=== PATIENT | female | born 1965 | race Caucasian/White ===

== ENCOUNTER 2019-04-28 05:34 | Day surgery (SDC) | payer OTHER ==
[~2019-04-28 05:34] MED LIST: Buffered Lidocaine 1% SYRIN* 1 ML/SYRINGE INTRADERM ONE
[2019-04-28] MEDS ORDERED: Famotidine IV* 10 MG/ML 2 ML (20 mg) IV ONE (06:00)
[2019-04-28] MEDS ORDERED: Lactated Ringers 1000 ML Bag* 1,000 ML IV SCH (06:00)
[2019-04-28] MEDS ORDERED: Metoclopramide IV* 5 MG/ML 2 ML VIAL IV SLOW PU ONE (06:00)
[2019-04-28] MEDS ORDERED: Famotidine IV* 10 MG/ML 2 ML (20 mg) ONE (06:05)
[2019-04-28] MEDS ORDERED: Buffered Lidocaine 1% SYRIN* 1 ML/SYRINGE INTRADERM ONE (06:05)
[2019-04-28] MEDS ORDERED: Metoclopramide IV* 5 MG/ML 2 ML VIAL ONE (06:05)
[2019-04-28 06:48] LABS: Hematocrit 44 % (35-47); Hemoglobin 15.6 g/dL (12.0-16.0); Mean Corpuscular HGB Conc 35 g/dL (31-36); Mean Corpuscular Hemoglobin 29 pg (27-31); Mean Corpuscular Volume 83 fL (80-97); Mean Platelet Volume 7.7 fL (7.4-10.4); Platelet Count 226 10^3/uL (150-450); Red Blood Count 5.34 10^6 /uL (3.70-4.87); Red Cell Distribution Width 13 % (10-15); White Blood Count 6.9 10^3/uL (3.5-10.8)
[2019-04-28] MEDS ORDERED: Silver Nitrate/Potassium Nitr* 1 EA STICK ONE (06:52)
[2019-04-28] MEDS ORDERED: Dextrose 50% Syringe 50 ML* 25 GM/50 ML SYRINGE ONE (06:55)
[2019-04-28] MEDS ORDERED: fentaNYL* 50 MCG/ML 2 ML VIAL (100 MCG VIAL) ONE ×2 (07:09→08:31)
[2019-04-28] MEDS ORDERED: Ketorolac INJ* 30 MG/ML 1 ML VIAL ONE (07:10)
[2019-04-28] MEDS ORDERED: Propofol* 10 MG/ML 20 ML BTL ONE (07:10)
[2019-04-28] MEDS ORDERED: Ondansetron INJ* 2 MG/ML VIAL ONE (07:10)
[2019-04-28] MEDS ORDERED: Lidocaine 2% PF * 5 ML VIAL ONE (07:10)
[2019-04-28] MEDS ORDERED: DiMENhydriNATE IV* 50 MG/ML VIAL IV PUSH PRN (08:20)
[2019-04-28] MEDS ORDERED: Naloxone* 0.4 MG/ML 1 ML VIAL IV PRN (08:20)
[2019-04-28] MEDS ORDERED: Ibuprofen TAB* 600 MG PO PRN (08:37)
[2019-04-28] MEDS: fentaNYL* 50 MCG/ML 2 ML VIAL (100 MCG VIAL) IV PRN ×2 (08:37→08:44)
--- NOTE | 2019-04-28 09:00 | OP ---
AMENDED REPORT NOW INCLUDES DATE OF OPERATION DATE OF OPERATION: 04/28/19 - [facility] DATE OF : 65 SURGEON: Tiffany Soriano MD. ANESTHESIOLOGIST: Dr. Kramer. ANESTHESIA: General endotracheal anesthesia. PRE-OP DIAGNOSES: Postmenopausal bleeding, polyp on ultrasound. POST-OP DIAGNOSES: Postmenopausal bleeding, polyp on ultrasound. OPERATIVE PROCEDURE: 1. Dilation hysteroscopy. 2. MyoSure polypectomy. 3. Curettage. ESTIMATED BLOOD LOSS: Minimal, less than 50 cc. FINDINGS: Small midline uterus, nulliparous cervix. Uterus sounds to 6. There was a polyp towards the fundus on the posterior wall. COMPLICATIONS: None. COUNTS: Sponge count correct x10. DESCRIPTION OF PROCEDURE: The patient was brought to the operating room. When general anesthesia was found to be adequate, the patient was prepped and draped in the usual sterile fashion in the dorsal lithotomy position. Time-out was performed. Exam under anesthesia was performed. Speculum was placed in the vagina. The anterior lip of the cervix was grasped with a single-tooth tenaculum and the cervix was gently dilated using the graduated Hegar dilators. The uterus was sounded to 6. The hysteroscope was introduced and a polyp was seen at the fundal region of the uterus. The MyoSure LITE was used to remove the polyp in its entirety. The hysteroscope and MyoSure were removed. Curettage was performed. Endometrial curettings and mucus were sent with the polyp as one specimen to pathology. The single-tooth tenaculum was removed from the cervix. Excellent hemostasis was noted. All instruments were removed from the vagina and the patient will be brought to the recovery room. [id number]/[facility] #: [id number] [facility]
[2019-04-28 09:02] VITALS: BP 112/72
== END 2019-04-28 09:25 | disposition home or self-care (01) ==
LOC: OR 05:34
PROVIDERS: ATTEND Obstetrics & Gynecology
DX: N95.0 Postmenopausal bleeding (principal); N84.0 Polyp of corpus uteri; E11.9 Type 2 diabetes mellitus without complications; Z79.4 Long term (current) use of insulin; Z96.41 Presence of insulin pump (external) (internal); E03.9 Hypothyroidism, unspecified; Z68.33 Body mass index [BMI] 33.0-33.9, adult
CPT/HCPCS: 36415; 85027; 86850; 86900; 86901; 88305; A9270-GY; J1885; J2405; J2704; J2765; J3010